=== PATIENT | female | born 1965 | race Caucasian/White ===

== ENCOUNTER 2017-01-27 08:31 | Outpatient (CLI) | payer BC, OTHER ==
--- NOTE | 2017-01-27 11:02 | CT ---
CT ABDOMEN AND PELVIS WITH CONTRAST: TECHNIQUE: Multiple axial tomograms were obtained through the abdomen and pelvis with IV enhancement. Oral cont rast was administered. HISTORY: Nodular lymphoma. Annual followup. COMPARISON: Comparison is made to prior exam of 08/07/15. FINDINGS: The lung bases are clear. There is a calcified granuloma in the right lower lobe noted. Liver, spleen, and pancreas are unremarkable. Granulomatous calcifications in the spleen are noted. Stomach and duodenum unremarkable. Adrenal glands and kidneys unremarkable. No hydronephrosis. Small bowel loops appear normal. Appendix appears normal and is opacified. Colon unremarkable. Aorta is normal caliber. Nonspecific paraaortic lymph nodes are again seen. These are stable from prior exam. No evidence of adenopathy or new lymph node enlargement. Prior exam described a new area of fat stranding in the right retroperitoneal region, inferior to the right kidney and abutting the right colon. This finding is less pronounced today and does not appea r significant. Images through the pelvis show unremarkable uterus and adnexa. Aorta is normal caliber. IMPRESSION: Nonspecific paraaortic lymph nodes are stable. There is no evidence of adenopathy or significant int erval change. POS: [facility]
== END 2017-01-27 08:32 | disposition home or self-care (01) ==
LOC: CT 08:31
PROVIDERS: ATTEND Internal Medicine Hematology & Oncology
DX: C85.90 Non-Hodgkin lymphoma, unspecified, unspecified site (principal)
CPT/HCPCS: 74177

== ENCOUNTER 2018-10-01 07:06 | Outpatient (CLI) | payer OTHER ==
--- NOTE | 2018-10-01 09:58 | CT ---
EXAM: CT ABDOMEN AND PELVIS HISTORY: Follicular lymphoma COMPARISON: 08/07/2015, 01/27/2017 Procedure: Multiple contiguous axial images were obtained and a CT of the abdomen and pelvis with IV contrast. C oronal reformats were performed. FINDINGS: Lower Chest: within normal limits. Vessels: Normal caliber aorta. No periaortic fat stranding Heart: Normal heart size. No significant pericardial fluid Abdomen: Portal vein:Patent Gallbladder: No calcified gallstones. Normal caliber wall. Liver: within normal limits. Pancreas: within normal limits. Spleen: within normal limits. Adrenals: within normal limits. Kidneys: Symmetric enhancement. No obstructive uropathy. Peritoneum: No ascites or free air, no fluid collection. Bowel: Gastric mucosa, duodenum and multiple normal caliber small bowel loops. Ileocecal junction is unremarkable. Contrast opacifies a normal-appearing colon. There is a caliber change with regards to the appendix. In the mid portion, there is a small focus of air. Distal to the small focus of air, there appears to be mixed attenuation with mild dilatation of the appendix. There is wall thickening of the appendix and mild periappendiceal fat stranding. Appendix measures 0.8 cm. No evide nce of perforation or abscess Mesentery and Retroperitoneum: No enlarged mesenteric or retroperitoneal lymph nodes. Abdominal Wall: Stable dehiscence of the ventral abdominal wall. No evidence of herniation Pelvis: Reproductive Organs: No pelvic masses. Pelvis: within normal limits. Bladder: within normal limits. Bones: within normal limits. IMPRESSION: 1. No evidence of lymphadenopathy in the abdomen or pelvis 2. Abrupt caliber change with dilatation and mild adjacent fat stranding involving the mid to distal aspect of the appendix. Correlate clinically. Results of study conveyed to Dr. Delgado via [facility] on 10/01/2018 at 9:55 AM Code CR Transcribed Date/Time: 10/01/2018 10:19 AM
[2018-10-01] MEDS ORDERED: Iopamidol 370 76% 100 ML VIAL ONE (10:32)
[2018-10-01] MEDS ORDERED: Iopamidol 370 76% 50 ML VIAL FS ONE (10:32)
== END 2018-10-01 07:07 | disposition home or self-care (01) ==
LOC: CT 07:06
PROVIDERS: ATTEND Internal Medicine Hematology & Oncology
DX: C82.13 Follicular lymphoma grade II, intra-abdominal lymph nodes (principal); K38.8 Other specified diseases of appendix
CPT/HCPCS: 74177; Q9967

== ENCOUNTER 2018-10-03 09:46 | Outpatient (CLI) | payer OTHER ==
[2018-10-03 11:01] LABS: #Eosinphils 0.1 thou/uL (0.0-0.7); #Lymphocytes 1.5 thou/uL (1.20-3.40); #Monocytes 0.4 thou/uL (0.11-0.59); #Neutrophils 3.5 thou/uL (1.40-6.50); %Basophils 0.6 % (0.0-1.0); %Eosinophils 1.6 % (0.0-10.0); %Lymphocytes 27.8 % (21.0-51.0); %Monocytes 7.4 % (0.0-10.0); %Neutrophils 62.6 % (42.0-75.0); Hemoglobin 14.4 g/dL (12.0-16.0); Mean Corpuscular HGB CONC 33.8 g/dL (32.0-36.0); Mean Corpuscular Volume 94.8 fL (78.0-98.0); Mean Platelet Volume 8.3 fL (7.4-10.4); Platelet Count 226 thou/uL (130-400); Red Blood Cell (RBC) Count 4.49 mill/uL (4.20-5.40); White Blood Cell (WBC) Count 5.5 thou/uL (4.8-10.8)
[2018-10-03 11:22] LABS: Anion Gap 14 mmol/L (10-20); BUN (Urea Nitrogen) 11 mg/dL (9.8-20.1); Calc. Creatinine Clearance 0 mL/min (70-130); Calcium 9.8 mg/dL (7.8-10.44); Carbon Dioxide 28 mmol/L (22-29); Chloride 101 mmol/L (98-107); Estimated GFR-MDRD 69; Glucose 91 mg/dL (70-105); Potassium 4.1 mmol/L (3.5-5.1); Sodium 139 mmol/L (136-145)
== END 2018-10-03 09:47 | disposition home or self-care (01) ==
LOC: LABBT 09:46
PROVIDERS: ATTEND Specialist
DX: Z01.818 Encounter for other preprocedural examination (principal); K37 Unspecified appendicitis
CPT/HCPCS: 80048; 85025; 93005; 93010

== ENCOUNTER 2018-10-04 10:09 | Day surgery (SDC) | payer OTHER ==
[2018-10-03 10:13] VITALS: BMI 26.2
[2018-10-04] MEDS ORDERED: Ketorolac Tromethamine 30 MG/ML VIAL ONE (12:22)
[2018-10-04] MEDS ORDERED: Sodium Chloride 0.9% 100 ML ONE (12:22)
[2018-10-04] MEDS ORDERED: cefOXitin 2 GM VIAL ONE (12:22)
[2018-10-04] MEDS ORDERED: Bupivacaine/Epinephrine 0.25% 30 ML VIAL ONE (13:56)
[2018-10-04] MEDS ORDERED: Glycopyrrolate 0.2 MG/ML 5 ML SYRINGE ONE (13:59)
[2018-10-04] MEDS ORDERED: PROPOFOL 200 MG/20 ML VIAL ONE (13:59)
[2018-10-04] MEDS ORDERED: Succinylcholine Chloride 20 MG/ML 10 ml SYRINGE FS ONE (13:59)
[2018-10-04] MEDS ORDERED: Lidocaine 1% PF 5 ML VIAL ONE (13:59)
[2018-10-04] MEDS ORDERED: Dexamethasone 20 MG/5 ML VIAL ONE (13:59)
[2018-10-04] MEDS ORDERED: Ondansetron PF 4 MG/2 ML Vial ONE (13:59)
[2018-10-04] MEDS ORDERED: ePHEDrine 50 MG/ML VIAL ONE (13:59)
[2018-10-04] MEDS ORDERED: Rocuronium Bromide 10 MG/ML (10ML VIAL) ONE (13:59)
[2018-10-04] MEDS ORDERED: Fentanyl 100 MCG/2 ML VIAL ONE (14:31)
[2018-10-04] MEDS ORDERED: HYDROcodone/Acetaminophen 5/325 mg Tablet ONE (17:22)
--- NOTE | 2018-10-05 09:17 | OP ---
DATE OF PROCEDURE: 10/04/2018 PREOPERATIVE DIAGNOSIS: Abnormal appearance of appendix on recent CT scan. POSTOPERATIVE DIAGNOSIS: Abnormal appearance of appendix on recent CT scan with enlarged and a potentially inflamed appendix without evidence of surrounding abnormality. OPERATION PERFORMED: Laparoscopic appendectomy. ANESTHESIA: General endotracheal. INDICATIONS: The patient is a 53-year-old white female. She has a history of lymphoma. In followup of this, she has an annual CT scan. Her CT scan performed earlier this week revealed a dilated thickened and somewhat inflamed appendix. She had no symptoms of appendicitis. Due to the abnormal CT appearance as well as her history of malignancy, laparoscopic appendectomy was recommended. DESCRIPTION OF OPERATION: Informed consent was obtained. The patient was taken to the operating room, where general endotracheal anesthesia was obtained and placed in supine position. Abdomen was prepped with ChloraPrep, draped in sterile fashion. Local anesthetic was infiltrated using 0.25% Marcaine with epinephrine. A 5 mm infraumbilical incision was created through which a Veress needle was passed into the peritoneal cavity. Pneumoperitoneum was established using carbon dioxide up to pressure of 15 mmHg. A 5 mm trocar port was passed through the same incision. Laparoscopic camera was passed through this port. Under direct vision, 2 additional ports were placed including a 12 mm suprapubic port, a 5 mm left lower quadrant port. Attention was turned to the right lower quadrant. Appendix was quickly identified. It was clearly enlarged and abnormal. There was an entirely normal base of the appendix. It had an appearance typical of relatively early appendicitis. There was no nodularity to suggest a tumor. There was no surrounding lymphadenopathy that was appreciated. The mesoappendix was grasped and taken down using electrocautery, skeletonizing the base of the appendix. The appendix was divided at the base between 2 PDS Endoloop ties. The appendiceal stump was cauterized. The appendix was placed in a specimen retrieval sac and removed through the suprapubic port. During the course of removing the appendix, the internal aspect of the appendix pulled free from the rest of it, which could potentially hamper evaluation, if there was any questionable malignancy. The specimen was not spilled into the abdominal cavity, however. The specimen was submitted to pathology. Fascia was closed with 0 Vicryl suture using GraNee needle. All ports and instruments were removed under direct vision. Pneumoperitoneum was carefully evacuated. A 0.25% Marcaine with epinephrine was infiltrated at each port site. Skin edges were approximated with 4-0 Monocryl subcuticular suture. Dermabond was placed externally. There were no complications. The patient tolerated the procedure well and was taken to recovery room in stable condition. Job ID: [id number]
== END 2018-10-04 18:05 | disposition home or self-care (01) ==
LOC: SDC 10:09
PROVIDERS: ATTEND Specialist
PROC: 0DTJ4ZZ Resection of Appendix, Percutaneous Endoscopic Approach (ICD-10-PCS; principal; 2018-10-04)
DX: K35.80 Unspecified acute appendicitis (principal); Z79.899 Other long term (current) drug therapy
CPT/HCPCS: 88304; J0131; J0694; J1100; J1885; J2001; J2405; J2704; J3010; J3490

== ENCOUNTER 2020-04-24 07:29 | Outpatient (CLI) | payer OTHER ==
[2020-04-24] MEDS ORDERED: Iopamidol 370 76% 50 ML VIAL FS ONE (11:15)
[2020-04-24] MEDS ORDERED: Iopamidol 370 76% 100 ML VIAL ONE (11:15)
== END 2020-04-24 07:30 | disposition home or self-care (01) ==
LOC: CT 07:29
PROVIDERS: ATTEND Internal Medicine Hematology & Oncology
DX: C82.13 Follicular lymphoma grade II, intra-abdominal lymph nodes (principal)
CPT/HCPCS: 74177; Q9967